=== PATIENT | male | born 1940 | race Caucasian/White ===

== ENCOUNTER 2016-08-17 21:02 | Inpatient (IN) | payer OTHER, SELFPAY ==
--- NOTE | ~2016-08-17 | HP ---
Unit #: [id number] #: [id number] Patient: GABRIEL BAH [id number] [address] [place], [place] [address] [id number] Jason MR#: [id number] NAME: GABRIEL BAH. ROOM: 466 Age: 76 Sex: M Admission Date: 08/17/2016 : 1940 Attending Physician: Ru Srinviasan M.D. Primary Care Physician: Rosy Martel M.D. HISTORY AND PHYSICAL HISTORY OF PRESENT ILLNESS Mr. Bah is a 76-year-old male followed by me for COPD, who presents with increasing shortness of air for about seven to eight days. He does have a cough which was productive of some yellow sputum initially, but now it is more like white or clear. He really did not complain of any fever or chills. He has had some chest tightness but not really chest pain. I gave her samples of Breo and also Anoro from the office and told him to try it one at a time and he felt like the Breo seemed to help more. However, I think he just finished the Breo. He has had some allergy issues. PAST MEDICAL HISTORY 1. Coronary artery disease. He had a coronary artery stent placed I believe in 2011. 2. Hypertension. 3. Hyperlipidemia. 4. Chronic back pain. 5. History of a penile malignancy. PAST SURGICAL HISTORY 1. Cardiac catheterization and stent placement. 2. Circumcision. MEDICATIONS ON ADMISSION 1. Lisinopril 10 mg p.o. daily. 2. Lipitor 20 mg p.o. daily. 3. Aspirin 81 mg p.o. daily, although I think he takes 2 daily. 4. DuoNebs q.6 p.r.n. 5. Anoro 1 puff daily, but he is not taking that. 6. Breo 1 puff daily. He is finishing that, but he probably will continue it. 7. He had taken prednisone on a tapering dose. 8. Nitroglycerin 0.4 mg sublingual p.r.n. 9. Lortab 10/325 q.8 p.r.n. ALLERGIES No known drug allergies. SOCIAL HISTORY He did smoke but quit about six years ago. FAMILY HISTORY Mom with breast cancer and father with heart disease. Unit #: [id number] #: [id number] Patient: GABRIEL BAH REVIEW OF SYSTEMS He has no leg swelling, no skin complaints, and no nausea or vomiting. Appetite is fair. All other systems are negative except as mentioned. PHYSICAL EXAMINATION GENERAL: He presents as an older male in no acute distress. VITAL SIGNS: Temperature was 97.2, pulse 76, respirations 16, blood pressure 134/71, and saturation 98% right now on 2 liters, but saturation was 86% on room air in the ER. NECK: Without adenopathy. LUNGS: Breathing was not labored. He had a little bit of inspiratory and expiratory rhonchi left posteriorly, but I could not really reproduce it when I listened again. He does have decreased breath sounds bilaterally. HEART: Regular. ABDOMEN: Soft and nontender. Bowel sounds are present. EXTREMITIES: Without edema. NEUROLOGICALLY: He is awake and alert. DIAGNOSTIC STUDIES LABORATORY: Blood gas on 2 liters revealed a pH of 7.36, PCO2 of 44, and PO2 of 85. Serum chemistry significant for BUN of 25, creatinine 0.8, total bilirubin 2.7, and indirect was 2.3. White blood cell count was 30.7, hemoglobin and hematocrit 17.8 and 52, and platelets 219,000. Back in March 2016, his white count was 15,000. IMAGING: Chest x-ray to my exam reveals no definite infiltrates, although I thought he had increased interstitial markings at the bases, and it was a portable, and it probably was not the best x-ray. IMPRESSION 1. Acute exacerbation of chronic obstructive pulmonary disease. 2. Coronary artery disease. 3. Leukocytosis actually etiology uncertain. He was indeed on prednisone before he came in, and that could have something to do with it, but it should not make it all the way to 30. 4. Elevated bilirubin slightly but etiology uncertain. 5. Acute hypoxemic respiratory failure. PLAN We will treat him with IV steroids and IV antibiotics, and I will give him Rocephin and try to send sputum for culture. Will check a procalcitonin. We will need to keep in mind that he has coronary artery disease, and I will check some enzymes even though this does not necessarily sound like a coronary syndrome to me. Dictated by Ru Srinivasan M.D. ROSI/nika TD: 08/18/2016 15:54 JOB #: [id number] Unit #: [id number] #: [id number] Patient: GABRIEL BAH HISTORY AND PHYSICAL Page 1 of 1 X Ru Srinivasan MD HISTORY AND PHYSICAL
--- NOTE | ~2016-08-17 | EKG ---
PATIENT: GABRIEL CELESTIN UNIT #: [id number] Ventricular Rate: 57 BPM Atrial Rate: 57 BPM P-R Interval: 126 ms QRS Duration: 68 ms Q-T Interval: 424 ms QTC Calculation(Bezet): 412 ms P [place]: 72 degrees Calculated R [place]: 59 degrees Calculated T [place]: 76 degrees Diagnosis Line: Sinus bradycardia Diagnosis Line: Nonspecific ST elevation Diagnosis Line: Otherwise normal ECG Diagnosis Line: When compared with ECG of 22-AUG-2016 23:09, Diagnosis Line: Premature supraventricular complexes are no longer Diagnosis Line: Present Diagnosis Line: Confirmed by KHANH FAGAN MD ([id number]) on 08/26/2016 Diagnosis Line: 5:39:21 AM INTERPRETING MD: GRACIA HIGH
--- NOTE | ~2016-08-17 | CR72 ---
[facility] [place]. [facility] A Service of [facility] & [facility] / [facility] RADIOLOGY TEXT RESULTS PATIENT: GABRIEL CELESTIN LOCATION: [place] [address] : [birth year] UNIT #: [id number] AGE: [address]: Ru Srinivasan MD SEX: M ORDER DR: [id number] [place] [id number] I MR#: [id number] Acc #: [id number] NAME: GABREIL CELESTIN. : 1940 SEX: M STUDY DATE/TIME: 08/17/2016 22:09 UNIT: SEDOF ROOM: [facility] STUDY DESCRIPTION: CR Chest Single View Portable Attending Physician: Ru Srinivasan M.D. Ordering Physician: Eleno Rivas M.D. Primary Care Physician: Rosy Martel M.D. MEDICAL IMAGING REPORT This report is preliminary unless electronic signature is present. EXAM Portable chest 08/17/2016 HISTORY Shortness of breath and cough for 1 week, COPD exacerbation. FINDINGS The heart is normal in size. The lungs are hyperinflated with emphysematous and fibrotic changes characteristic of COPD. No airspace consolidation is seen. There are no pleural effusions. IMPRESSION COPD. No active pulmonary disease. Dictated by... Onur Gonzalez M.D. THIS IS AN ELECTRONICALLY VERIFIED REPORT Onur Gonzalez M.D. at 08/18/2016 3:18 PM RYAN/alexus TD: 08/18/2016 01:05 JOB #: [id number] MEDICAL IMAGING REPORT Page 1 of 1
--- NOTE | ~2016-08-17 | CO ---
Unit #: [id number] #: [id number] Patient: GABRIEL CELESTIN [id number] [address] [place], [place] [address] [id number] I MR#: [id number] NAME: GABRIEL CELESTIN. ROOM: [facility] Age: 76 Sex: M Admission Date: 08/18/2016 : 1940 Attending Physician: Ru Srinivasan M.D. Primary Care Physician: Rosy Martel M.D. CONSULTATION REPORT REASON FOR CONSULTATION Chest pain. HISTORY OF PRESENT ILLNESS This is a 76-year-old white male, who has seen Dr. Johnson in the past had a stent placed in the proximal to mid LAD along with angioplasty on the first diagonal of the LAD back in 2011, his EF was 60% at that time. He has hypertension, hyperlipidemia, COPD. He is being treated by Dr. Srinivasan for exacerbation of COPD. While he has been here being under treatment, he had 2 episodes of right upper quadrant pain in midepigastric area after eating his meals and onetime he was eating a cheeseburger. He denies that the pain radiated up into his midsternal chest or in the substernal chest wall. Note, denied shoulder, jaw, neck, or arm pain. He denies any dizziness or palpitations and has had no reports of any edema. When he has the spell, he said he took some Maalox and within an hour, the symptoms have resolved. He said this does not feel like the pain that he has had in the past when he had his stents. Cardiology has been here. Since the patient has a history of CAD and previous stents and he is complaining of some discomfort that could indicate possibly angina, Cardiology has been consulted to assist with evaluation and management. PAST MEDICAL HISTORY 1. COPD. 2. Coronary artery disease. 07/2011, had a PCI and stent to the proximal and mid LAD, and first diagonal of the LAD had balloon angioplasty only. 3. LVEF of 60% per catheterization. 4. Hypertension. 5. Hyperlipidemia. 6. Chronic back pain. 7. In 2011, 2D echo, LVEF of 55%, calcified mitral apparatus, AV leaflets sclerotic, but no stenosis. 8. Chronic back pain. 9. Reformed smoker. PAST SURGICAL HISTORY Status post PCI and stent placed to the mid LAD in 07/2011 along with balloon angioplasty to the first diagonal of the LAD. HOME MEDICATIONS Lisinopril 10 mg 1 tablet p.o. daily, Lipitor 20 mg p.o. daily, aspirin 162 mg daily, albuterol and ipratropium inhalation every 6 hours p.r.n., Anoro Ellipta 62.5/25 mcg one inhalation daily, prednisone 10 mg tapering dose, Breo one inhalation daily, Nitrostat 0.4 mg sublingual p.r.n. for Unit #: [id number] #: [id number] Patient: GABRIEL CELESTIN chest pain, Lortab 10/325 one tablet p.o. every 8 hours p.r.n. ALLERGIES No known drug allergies. SOCIAL HISTORY The patient lives with his family. He quit smoking about 6 to 7 years ago. He was 1 to 2 pack a day smoker prior to that. No alcohol or illicit drug abuse. FAMILY HISTORY His mother had breast cancer. His father had coronary artery disease. REVIEW OF SYSTEMS See details in HPI. PHYSICAL EXAMINATION GENERAL: Mr. Celestin is a 76-year-old white male, in no acute respiratory distress. VITAL SIGNS: Blood pressure is 131/70, heart rate 64, respirations 18, temperature 97.4, O2 saturations 97% on 2 L. NECK: Trachea midline. No thyromegaly or lymphadenopathy. Normal carotid upstrokes. No jugular venous distention. HEART: S1, S2. Regular rate and rhythm. Soft systolic murmur over left sternal border. LUNGS: Very diminished with faint wheezes that clears with cough. ABDOMEN: Soft, nontender. Positive bowel sounds present. EXTREMITIES: Pedal pulses are palpable. No pedal edema. DIAGNOSTIC STUDIES LABORATORY RESULTS: Glucose is 92, BUN 26, creatinine 0.6, eGFR is 99.1, sodium 140, potassium 4.8, chloride 102, CO2 of 34, calcium is 8.2, total protein 6.1, albumin 3.2, bilirubin total 1.0, AST 16, ALT 18, alkaline phosphatase 58. Fasting lipid profile; cholesterol is 143, triglycerides 243, LDL is 43, HDL 51. WBC is 20, hemoglobin 14.3, hematocrit 45.3, and platelets 128. Initial cardiac enzymes; CK-MB is 1.1 with troponin less than 0.05. Latest cardiac enzymes troponin less than 0.03. Sputum culture is showing Acinetobacter baumannii/haemolyticus. IMAGING STUDIES: Chest x-ray extensive calcification along with thoracic spine, heart, and mediastinum normal. Lungs hyperinflated suggesting underlying chronic airway disease. No evidence of any acute infection or inflammatory disease, perfusion, or pneumothorax. CARDIOVASCULAR STUDIES: EKG shows sinus bradycardia, heart rate of 57 beats per minute, early repolarization, nondiagnostic Q-waves in inferior leads, poor R-wave progression. IMPRESSION 1. Exacerbation of chronic obstructive pulmonary disease, acute on chronic hypoxic respiratory failure. 2. Hypertension. 3. Atypical chest pain. 4. History of coronary artery disease, status post percutaneous coronary intervention and stent to the left anterior descending back in 2012. 5. Left ventricular ejection fraction is 60% in 2012 per echo. 6. Hyperlipidemia. 7. Chronic back pain. Unit #: [id number] #: [id number] Patient: GABRIEL CELESTIN PLAN 1. Cardiology consulted to evaluate the patient's complaints of chest pain. After interview and exam, it appears that his pain is more epigastric and more GI in nature. We did recheck his EKG and does not show anything acute. We will evaluate for possible GERD or gallbladder disease. He has been scheduled for an outpatient testing for his gallbladder disease. 2. The patient has not been following up with Dr. Johnson for couple years, but when he is discharged to our office, we will call the patient and schedule him appointment. He will need some type of ischemic heart disease workup since 2011 possibly just a stress test and also 2D echo. His cardiac enzymes have been negative and note his fasting lipid profile. He is on Lipitor. 3. On exam, there are no signs or symptoms of acute congestive heart failure. 4. Management of his exacerbation of COPD per Dr. Srinivasan. 5. Continue the patient on his lisinopril, his Lipitor, his aspirin. He is not on a beta-bria due to bradycardia. Thank you very much for allowing us to assist in his care. Further recommendations pending per Dr. Johnson. Dictated by... Mercy Moreno A.P.R.N. for Rogers Castellanos/stephen TD: 08/25/2016 07:41 JOB #: [id number] CONSULTATION REPORT Page 1 of 1 X Mercy Moreno APRN CONSULTATION REPORT
--- NOTE | ~2016-08-17 | EKG ---
PATIENT: GABRIEL CELESTIN UNIT #: [id number] Ventricular Rate: 61 BPM Atrial Rate: 61 BPM P-R Interval: 140 ms QRS Duration: 62 ms Q-T Interval: 440 ms QTC Calculation(Bezet): 442 ms P [place]: 59 degrees Calculated R [place]: 70 degrees Calculated T [place]: 87 degrees Diagnosis Line: Normal sinus rhythm Diagnosis Line: ST elevation consider inferior injury or acute Diagnosis Line: infarct Diagnosis Line: * ACUTE NM Diagnosis Line: Consider right ventricular involvement in acute Diagnosis Line: inferior infarct Diagnosis Line: Abnormal ECG Diagnosis Line: When compared with ECG of 24-MAR-2016 06:36, Diagnosis Line: Vent. rate has decreased BY 37 BPM Diagnosis Line: Questionable change in QRS duration Diagnosis Line: Confirmed by JOLIE HIGHTOWER MD ([id number]) on 08/21/2016 Diagnosis Line: 9:44:04 AM INTERPRETING MD: KATJA HIGH
--- NOTE | ~2016-08-17 | EKG ---
PATIENT: GABRIEL CELESTIN UNIT #: [id number] Ventricular Rate: 55 BPM Atrial Rate: 55 BPM P-R Interval: 138 ms QRS Duration: 68 ms Q-T Interval: 460 ms QTC Calculation(Bezet): 440 ms P [place]: 83 degrees Calculated R [place]: 71 degrees Calculated T [place]: 87 degrees Diagnosis Line: Sinus bradycardia Diagnosis Line: Otherwise normal ECG Diagnosis Line: When compared with ECG of 19-AUG-2016 05:59, Diagnosis Line: (unconfirmed) Diagnosis Line: No significant change was found Diagnosis Line: Confirmed by JOLIE HIGHTOWER MD ([id number]) on 08/21/2016 Diagnosis Line: 9:44:20 AM INTERPRETING MD: KATJA HIGH
--- NOTE | ~2016-08-17 | DS ---
Unit #: [id number] #: [id number] Patient: GABRIEL CELESTIN [id number] [place] [id number] [facility]. [place], [place] [address] [id number] I MR#: [id number] NAME: GABRIEL CELESTIN. ROOM: [facility] Age: 76 Sex: M Admission Date: 08/18/2016 : 1940 Discharge Date: 08/24/2016 Attending Physician: Ru Srinivasan M.D. Primary Care Physician: Rosy Martel M.D. DISCHARGE SUMMARY FINAL DIAGNOSES 1. Acute exacerbation of chronic obstructive pulmonary disease. 2. Acute hypoxemic respiratory failure. 3. Acute Acinetobacter bronchitis. 4. Atypical chest pain. 5. Leukocytosis. CONSULTANTS Dr. Johnson. PROCEDURES None. HISTORY OF PRESENT ILLNESS AND HOSPITAL COURSE Mr. Celestin is a 76-year-old male followed by me in the office, who presented with an increasing shortness of air. We sent off sputum for culture and started him on Rocephin but then that was changed to cefepime. His sputum grew out Gram-negative rods which is why it was changed to cefepime. The sputum did eventually grow out Acinetobacter which is sensitive to Levaquin. He will be therefore be changed to Levaquin. However, clinically he has improved considerably. He is doing better with decreased shortness of air. Although he had originally been started on Solu-Medrol, that was tapered down and now he is on prednisone. We did check a procalcitonin but it was less than 0.05. He does have coronary artery disease and did complain of some chest versus epigastric pain. We have checked multiple EKGs while he was here and I checked enzymes when he first came here and that was all low. However, under the circumstances, I felt that he needed to be seen by Cardiology. He has already been seen by Dr. Johnson's nurse and Dr. Johnson is here. If he agrees, Mr. Celestin will be discharged. We will recheck oxygenation before he leaves although we were originally going to set up home oxygen but that was based on numbers from a few days ago. DISCHARGE MEDICATIONS He will be sent home on the following medicines: 1. DuoNeb q.i.d. p.r.n. 2. Breo 200 one puff daily, 3. Prednisone 30 mg p.o. daily decreasing by 10 mg every three days. 4. Levaquin 750 mg p.o. daily for seven days. 5. Atorvastatin 20 mg p.o. daily. 6. Lisinopril 10 mg p.o. daily. 7. Aspirin 81 mg p.o. daily. 8. Lortab which is a home medicine and I did not write it. Unit #: [id number] #: [id number] Patient: GABRIEL CELESTIN DIET Diet will be healthy heart. ACTIVITY Activity will be as tolerated. FOLLOWUP 1. He should follow up with us in a few weeks. 2. He is to follow up with Dr. Johnson as arranged. NOTE Again, we will check oxygenation before he leaves. Dictated by... Rogers Handy/kashmir TD: 08/26/2016 15:33 JOB #: [id number] DISCHARGE SUMMARY Page 1 of 1 X Ru Srinivasan MD X DISCHARGE SUMMARY
--- NOTE | ~2016-08-17 | CR63 ---
[facility] A Service of [facility] & [facility] RADIOLOGY TEXT RESULTS PATIENT: GABRIEL CELESTIN LOCATION: [facility] [id number] : 42 UNIT #: [id number] AGE: [address]: Ru Srinivasan MD SEX: M ORDER DR: [id number] [facility] [address] [place], [place] [address] [id number] I MR#: [id number] Acc #: [id number] NAME: GABRIEL CELESTIN. : 1940 SEX: M STUDY DATE/TIME: 08/22/2016 16:00 UNIT: [facility] ROOM: [facility] STUDY DESCRIPTION: CR Chest 2 View Attending Physician: Ru Srinivasan M.D. Ordering Physician: Ru Srinivasan M.D. Primary Care Physician: Rosy Martel M.D. MEDICAL IMAGING REPORT This report is preliminary unless electronic signature is present EXAM 2 views chest, 08/22/2016 HISTORY Bradycardia versus pneumonia. FINDINGS PA and lateral radiographs of the chest are presented. Comparison 08/13/2015 and 08/18/2015. Extensive calcification along the thoracic spine anterior longitudinal ligament. No acute-appearing bony abnormality. Heart and mediastinum normal in size and contour. Lungs hyperinflated suggesting underlying chronic airway disease. Relative lucency in the upper lung zones suggests underlying emphysema. Correlate with risk factors. No evidence of acute infectious or inflammatory disease, pleural effusion or pneumothorax. There is no suspicious nodule. Probable eventration of the lateral right hemidiaphragm. No suspicious nodule. Dictated by... Eleno Hernandez M.D. THIS IS AN ELECTRONICALLY VERIFIED REPORT Eleno Hernandez M.D. at 08/23/2016 11:32 PM JULIEN/mary TD: 08/22/2016 23:54 JOB #: [id number] MEDICAL IMAGING REPORT Page 1 of 1 COPY
--- NOTE | ~2016-08-17 | EKG ---
PATIENT: GABRIEL CELESTIN UNIT #: [id number] Ventricular Rate: 105 BPM Atrial Rate: 105 BPM P-R Interval: 130 ms QRS Duration: 68 ms Q-T Interval: 338 ms QTC Calculation(Bezet): 446 ms P [place]: 62 degrees Calculated R [place]: 103 degrees Calculated T [place]: 79 degrees Diagnosis Line: Sinus tachycardia with Premature ventricular Diagnosis Line: complexes or Fusion complexes Diagnosis Line: Right ventricular hypertrophy Diagnosis Line: Nonspecific ST abnormality Diagnosis Line: Abnormal ECG Diagnosis Line: When compared with ECG of 24-MAR-2016 06:36, Diagnosis Line: Fusion complexes are now Present Diagnosis Line: Premature ventricular complexes are now Present Diagnosis Line: ST elevation now present in Inferior leads Diagnosis Line: Confirmed by JOLIE HIGHTOWER MD ([id number]) on 08/21/2016 Diagnosis Line: 9:33:50 AM INTERPRETING MD: KATJA HIGH
--- NOTE | ~2016-08-17 | EKG ---
PATIENT: GABRIEL CELESTIN UNIT #: [id number] Ventricular Rate: 76 BPM Atrial Rate: 76 BPM P-R Interval: 98 ms QRS Duration: 72 ms Q-T Interval: 402 ms QTC Calculation(Bezet): 452 ms P [place]: 68 degrees Calculated R [place]: 66 degrees Calculated T [place]: 75 degrees Diagnosis Line: Sinus rhythm with short CO with Premature Diagnosis Line: supraventricular complexes Diagnosis Line: Otherwise normal ECG Baseline wander Diagnosis Line: When compared with ECG of 19-AUG-2016 06:22, Diagnosis Line: Premature supraventricular complexes are now Diagnosis Line: Present Diagnosis Line: CO interval has decreased Diagnosis Line: Nonspecific T wave abnormality no longer evident Diagnosis Line: in Lateral leads Diagnosis Line: Confirmed by JOLIE HIGHTOWER MD ([id number]) on 08/23/2016 Diagnosis Line: 8:08:17 PM INTERPRETING MD: KATJA HIGH
[~2016-08-17 21:02] MED LIST: ALB/IPRATROPIUM/1 E1 INH; ALBUTEROL 0.5ML INH; ANORO ELLIPTA1 EACH INH; ASPIRIN81 M1 PO; ASPIRIN81 MG PO; BAYER ASPIRIN325 M1 PO; BAYER CHEWABLE81 MG PO; BUDESONIDE0.25 MG/2 IH; CLOPIDOGREL75 MG PO; DALIRESP500 MCG PO; DUONEB 2.5-0.5 M3 ML INH; EFFIENT10 MG PO; LEVAQUIN PO; LIPITOR20 MG PO; LISINOPRIL10 MG PO; LOPRESSOR PO; NITROSTAT0.4 MG SL; PREDNISONE PO; PREDNISONE10 MG PO; PREVACID PO; PROTONIX PO; PULMICORT200 MCG/AE; TAMIFLU75 M1 PO; ULTRAM PO
[2016-08-17 21:32] LABS: BASOPHIL% 0.1 % (0-2.5); HEMATOCRIT 52.8 % (38.0-50.0); HEMOGLOBIN 17.8 gm/dL (13.0-16.0); LYMPHOCYTE# 1.2 X10e3 (1.0-3.5); MEAN CELL VOLUME 85.8 FL (83-96); MEAN CORPUSCULAR HEMOGLOBIN 28.9 PG (28-34); MEAN CORPUSCULAR HGB CONC 33.7 g/dL (30-36); MEAN PLATELET VOLUME 9.1 FL (6.5-11.5); MONOCYTE# 1.7 X10e3 (0-1.0); MONOCYTE% 5.6 % (3.0-12.0); NEUTROPHIL# 27.7 X10e3 (1.5-7.1); NEUTROPHIL% 90.3 % (40-75); PLATELET COUNT 219 X10e3 (140-420); RED BLOOD COUNT 6.16 X10e (3.90-5.60); RED CELL DISTRIBUTION WIDTH 13.1 % (11.0-15.5); WHITE BLOOD COUNT 30.7 X10e3 (4.0-10.5)
[2016-08-17 21:35] LABS: DIFF IND YES; INR 1.1
[2016-08-17 21:43] LABS: ALBUMIN SERUM 3.7 g/dL (3.5-5.0); BILIRUBIN, DIRECT 0.4 mg/dL (0.0-0.2); BILIRUBIN,INDIRECT 2.3 mg/dL (0.0-0.9); BILIRUBIN,TOTAL 2.7 mg/dL (0.2-2.0); BUN/CREATININE RATIO 31.25; CALCIUM SERUM 8.6 mg/dL (8.4-10.2); CREATININE SERUM 0.8 mg/dL (0.6-1.4); POTASSIUM 3.9 mmol/L (3.5-5.1); PROTEIN TOTAL SERUM 6.9 g/dL (6.0-8.3)
[2016-08-17 21:48] LABS: ANISOCYTOSIS SL; PLATELET ESTIMATE NORMAL (NORMAL)
[2016-08-17 21:55] LABS: POC - CKMB 1.1 ng/mL (0.0-7.9); POC - TROPONIN <0.05 ng/mL (<=0.05)
[2016-08-17 23:10] LABS: ARTERIAL BLD GAS O2 SATURATION 95.6 % (90.0-100.0); ARTERIAL BLOOD GAS CARBOXY HB 2.3 %sat (0.0-9.0); ARTERIAL BLOOD GAS HCO3 24.4 mmol/L
[2016-08-17 23:11] LABS: ARTERIAL BLOOD GAS ALLEN TEST NORMAL; ARTERIAL DRAW? YES
[2016-08-17 23:12] LABS: ARTERIAL BLOOD GAS ART SITE RIGHT RADIAL; ARTERIAL BLOOD GAS DELIVERY NASAL CANNULA
[2016-08-18] MEDS ORDERED: BREO ELLIPTA I1 EACH INH (02:07)
[2016-08-18] MEDS ORDERED: NITROGLYCERIN0.4 MG SL (02:08)
[2016-08-18] MEDS ORDERED: LORTAB 10-3251 EACH PO (02:09)
[2016-08-18 17:25] LABS: PROCALCITONIN 0.16 NG/ML
[2016-08-19 03:04] LABS: HEMATOCRIT 47.7 % (38.0-50.0); HEMOGLOBIN 15.3 gm/dL (13.0-16.0); MEAN CELL VOLUME 87.8 FL (83-96); MEAN CORPUSCULAR HEMOGLOBIN 28.2 PG (28-34); MEAN CORPUSCULAR HGB CONC 32.1 g/dL (30-36); MEAN PLATELET VOLUME 8.9 FL (6.5-11.5); RED BLOOD COUNT 5.43 X10e (3.90-5.60); RED CELL DISTRIBUTION WIDTH 13.3 % (11.0-15.5); WHITE BLOOD COUNT 28.2 X10e3 (4.0-10.5)
[2016-08-19 03:23] LABS: ALBUMIN SERUM 3.2 g/dL (3.5-5.0); CALCIUM SERUM 8.4 mg/dL (8.4-10.2); GLOM FILT RATE Estimated 73.8 mL/min (>60); POTASSIUM 4.1 mmol/L (3.5-5.1); PROTEIN TOTAL SERUM 6.1 g/dL (6.0-8.3)
[2016-08-20 03:45] LABS: HEMATOCRIT 48.5 % (38.0-50.0); HEMOGLOBIN 15.4 gm/dL (13.0-16.0); LYMPHOCYTE# 0.9 X10e3 (1.0-3.5); LYMPHOCYTE% 3.5 % (17.0-45.0); MEAN CELL VOLUME 89.9 FL (83-96); MEAN CORPUSCULAR HEMOGLOBIN 28.5 PG (28-34); MEAN CORPUSCULAR HGB CONC 31.7 g/dL (30-36); MEAN PLATELET VOLUME 9.3 FL (6.5-11.5); MONOCYTE# 0.5 X10e3 (0-1.0); NEUTROPHIL% 94.5 % (40-75); PLATELET COUNT 210 X10e3 (140-420); RED BLOOD COUNT 5.39 X10e (3.90-5.60); RED CELL DISTRIBUTION WIDTH 13.7 % (11.0-15.5); WHITE BLOOD COUNT 24.3 X10e3 (4.0-10.5)
[2016-08-20 03:46] LABS: DIFF IND NO
[2016-08-21 10:04] LABS: BUN/CREATININE RATIO 52.85; CALCIUM SERUM 8.2 mg/dL (8.4-10.2); CREATININE SERUM 0.7 mg/dL (0.6-1.4); POTASSIUM 4.9 mmol/L (3.5-5.1)
[2016-08-22 09:08] LABS: BASOPHIL% 0.2 % (0-2.5); DIFF IND YES; HEMATOCRIT 46.5 % (38.0-50.0); HEMOGLOBIN 14.8 gm/dL (13.0-16.0); LYMPHOCYTE# 0.8 X10e3 (1.0-3.5); LYMPHOCYTE% 4.3 % (17.0-45.0); MEAN CELL VOLUME 89.3 FL (83-96); MEAN CORPUSCULAR HEMOGLOBIN 28.5 PG (28-34); MEAN CORPUSCULAR HGB CONC 31.9 g/dL (30-36); MEAN PLATELET VOLUME 9.1 FL (6.5-11.5); MONOCYTE# 0.6 X10e3 (0-1.0); MONOCYTE% 3.2 % (3.0-12.0); NEUTROPHIL# 16.6 X10e3 (1.5-7.1); NEUTROPHIL% 92.3 % (40-75); PLATELET COUNT 150 X10e3 (140-420); RED CELL DISTRIBUTION WIDTH 13.3 % (11.0-15.5)
[2016-08-22 11:04] LABS: ANISOCYTOSIS SL; PLATELET ESTIMATE NORMAL (NORMAL); RBC NORMAL YES
[2016-08-22 23:45] LABS: CK TOTAL 27 IU/L (36-174)
[2016-08-24 06:35] LABS: BASOPHIL% 0.2 % (0-2.5); DIFF IND NO; HEMATOCRIT 45.3 % (38.0-50.0); HEMOGLOBIN 14.3 gm/dL (13.0-16.0); LYMPHOCYTE# 1.1 X10e3 (1.0-3.5); LYMPHOCYTE% 5.5 % (17.0-45.0); MEAN CELL VOLUME 89.1 FL (83-96); MEAN CORPUSCULAR HEMOGLOBIN 28.1 PG (28-34); MEAN CORPUSCULAR HGB CONC 31.5 g/dL (30-36); MEAN PLATELET VOLUME 9.4 FL (6.5-11.5); MONOCYTE# 0.8 X10e3 (0-1.0); MONOCYTE% 4.2 % (3.0-12.0); NEUTROPHIL% 90.1 % (40-75); PLATELET COUNT 128 X10e3 (140-420); RED BLOOD COUNT 5.08 X10e (3.90-5.60); RED CELL DISTRIBUTION WIDTH 13.2 % (11.0-15.5)
[2016-08-24 07:00] LABS: CALCIUM SERUM 8.1 mg/dL (8.4-10.2); CREATININE SERUM 0.7 mg/dL (0.6-1.4); POTASSIUM 5.4 mmol/L (3.5-5.1)
[2016-08-24 13:23] LABS: BUN/CREATININE RATIO 43.33; CALCIUM SERUM 8.2 mg/dL (8.4-10.2); CREATININE SERUM 0.6 mg/dL (0.6-1.4); GLOM FILT RATE Estimated 99.1 mL/min (>60); POTASSIUM 4.8 mmol/L (3.5-5.1)
[2016-08-24 14:25] LABS: CHOLESTEROL 143 mg/dL (0-200); HDL CHOLESTEROL 51 mg/dL (29-75); LDL CHOLESTEROL 43 mg/dL (-130); LDL/HDL RATIO 1 RATIO (0-4); TRIGLYCERIDES 243 mg/dL (10-160)
[2016-08-24] MEDS ORDERED: ALMACONE CHEWA1 EACH PO (17:53)
[2016-08-24] MEDS ORDERED: BREO ELLIPTA 21 EACH INH (17:56)
[2016-08-24] MEDS ORDERED: PREDNISONE10 MG PO (17:56)
[2016-08-24] MEDS ORDERED: LEVAQUIN750 MG PO (17:57)
== END 2016-08-24 19:12 | disposition home or self-care (01) | DRG 189 ==
LOC: SED 21:02 → C4C 23:37 → SEDOF 23:37 → C4C 08-18 01:50
PROVIDERS: Emergency Medicine; Internal Medicine Pulmonary Disease; Nurse Practitioner
DX: J96.21 Acute and chronic respiratory failure with hypoxia (principal); J44.0 Chronic obstructive pulmonary disease with (acute) lower respiratory infection; J44.1 Chronic obstructive pulmonary disease with (acute) exacerbation; I10 Essential (primary) hypertension; I25.10 Atherosclerotic heart disease of native coronary artery without angina pectoris; D72.829 Elevated white blood cell count, unspecified; E78.5 Hyperlipidemia, unspecified; G89.29 Other chronic pain; M54.9 Dorsalgia, unspecified; Z95.5 Presence of coronary angioplasty implant and graft; Z87.891 Personal history of nicotine dependence; Z79.82 Long term (current) use of aspirin; R07.89 Other chest pain; J20.8 Acute bronchitis due to other specified organisms
CPT/HCPCS: 36415; 36600; 71010; 71020; 80048; 80053; 80061; 80076; 82308; 82550; 82553; 82803; 83605; 84484; 85025; 85027; 85610; 85730; 87040; 87070; 87077; 87186; 87205; 93005; 94640; 94760; 94761; 96365; 96375; 99285; J0692; J0696; J1650; J2920; J2930; J3475

== ENCOUNTER 2016-10-09 12:06 | Inpatient (IN) | payer OTHER ==
--- NOTE | ~2016-10-09 | DS ---
Unit #: [id number] #: [id number] Patient: GABRIEL CELESTIN [id number] [address] [place], [place] [address] [id number] I MR#: [id number] NAME: GABRIEL CELESTIN. ROOM: 301 Age: 76 Sex: M Admission Date: 10/09/2016 : 1940 Discharge Date: 10/13/2016 Attending Physician: Brady Lantigua M.D. Primary Care Physician: Rosy Martel M.D. DISCHARGE SUMMARY FINAL DIAGNOSES 1. Pneumonia, presumed healthcare associated. 2. Acute on chronic hypercapnic and hypoxemic respiratory failure. 3. Acute exacerbation of chronic obstructive pulmonary disease. 4. Emphysema. MAGISTRATE None. HISTORY OF PRESENT ILLNESS Mr. Celestin is a 76-year-old male with history of known emphysema and previous pneumonia, presented with increasing shortness of air, increased cough. In the ER, he actually had a blood gas on 4 L nasal cannula, pH 7.31, pCO2 of 63, pO2 of 193. He had a chest x-ray with bilateral lower lobe infiltrates, thought consistent with bilateral pneumonia. His original white blood cell count was 15,000, repeat 13,000. Sputum was sent for culture and revealed only respiratory julia and blood was sent for culture and was negative. He was originally started on Zosyn and vancomycin, and I briefly switched it to cefepime and then I went back to Zosyn just because in August he had a sputum that showed acinetobacter. At that time, it was sensitive to ampicillin/sulbactam. I therefore eventually switched to Unasyn; however, we did not grow that this time. Therefore, I am assuming that was not a pathogen at this time. He had a little bit of expiratory wheezes that just did not seem to go away, so I started him on a little bit of IV steroid and I continued it for a few days. In the end, some of this was probably exacerbation of COPD. Previous CAT scan done in March did reveal significant emphysema and so that is a part of this. As of October 13, 2016, he is doing better and ready for discharge. I will check a pulse oximetry on room air before he goes. DISCHARGE MEDICATIONS He will continue on the following medicines: 1. DuoNeb q.i.d. and p.r.n. 2. Prednisone 40 mg p.o. daily, decreasing by 10 mg every three days. 3. Anoro one puff daily. 4. Lipitor 20 mg p.o. daily. 5. Aspirin 81 mg p.o. daily. 6. Lortab 10/325 two to three times daily which is a home med and I did not refill it myself. 7. Plavix 75 mg p.o. daily. 8. Doxycycline 100 mg p.o. b.i.d. 9. Nitrostat p.r.n. which is a home medicine and I did not refill that either. Unit #: [id number] #: [id number] Patient: SABIGABRIEL Wanda FOLLOWUP He is to follow with me in two to four weeks, and he should follow up with his primary medical doctor. We will base need for oxygen based on pulse oximetry to be done before he leaves. Dictated by... Rogers Handy/delmy TD: 10/15/2016 16:30 JOB #: [id number] DISCHARGE SUMMARY Page 1 of 1 X Ru Srinivasan MD X DISCHARGE SUMMARY
--- NOTE | ~2016-10-09 | EKG ---
PATIENT: GABRIEL CELESTIN UNIT #: [id number] Ventricular Rate: 96 BPM Atrial Rate: 96 BPM P-R Interval: 144 ms QRS Duration: 76 ms Q-T Interval: 356 ms QTC Calculation(Bezet): 449 ms P Pierron: 41 degrees Calculated R Pierron: 74 degrees Calculated T Pierron: 57 degrees Diagnosis Line: Normal sinus rhythm Premature atrial complexes Diagnosis Line: , plus right ventricular hypertrophy Diagnosis Line: When compared with ECG of 24-AUG-2016 12:29, Diagnosis Line: Vent. rate has increased BY 39 BPM Diagnosis Line: Confirmed by KHANH FAGAN MD ([id number]) on 10/10/2016 Diagnosis Line: 8:20:13 PM INTERPRETING MD: GRACIA HIGH
--- NOTE | ~2016-10-09 | CR72 ---
[facility] A Service of [facility] RADIOLOGY TEXT RESULTS PATIENT: GABRIEL CELESTIN LOCATION: [facility] : 42 UNIT #: [id number] AGE: [address]: Henok Lantigua MD SEX: M ORDER DR: [id number] [facility] [address]. [place], [place] [address] [id number] MR#: [id number] Acc #: [id number] NAME: GABRIEL CELESTIN. : 1940 SEX: M STUDY DATE/TIME: 10/09/2016 12:44 UNIT: JUNITO ROOM: STUDY DESCRIPTION: CR Chest Single View Portable Attending Physician: Yamilka Mcdonough M.D. Ordering Physician: Yamilka Mcdonough M.D. Primary Care Physician: Rosy Martel M.D. MEDICAL IMAGING REPORT This report is preliminary unless electronic signature is present EXAM Portable chest HISTORY Cough with shortness of breath for the past 6 days. TECHNIQUE Single AP view of the chest was obtained. COMPARISON 08/22/2016 FINDINGS The heart and mediastinum are stable. Diffuse bilateral interstitial infiltrates are noted most prominent at the bases. This is new since the previous examination and accompanied by mild prominence of the pulmonary vascularity. This probably represents diffuse interstitial edema. The possibility of an infectious or inflammatory pneumonitis should also be considered but felt to be less likely. No pleural fluid is seen. IMPRESSION Diffuse increase in interstitial markings since the previous examination accompanied by mild pulmonary vascular congestion. I favor diffuse interstitial edema rather than an inflammatory or infectious etiology. No accompanying pleural effusion seen. Dictated by... Stevie Ordonez M.D. THIS IS AN ELECTRONICALLY VERIFIED REPORT Stevie Ordonez M.D. at 10/09/2016 5:10 PM JESS/sena [facility] A Service of [facility] RADIOLOGY TEXT RESULTS PATIENT: GABRIEL CELESTIN LOCATION: [facility] : 42 UNIT #: [id number] AGE: [address]: Henok Lantigua MD SEX: M ORDER DR: TD: 10/09/2016 14:42 JOB #: [id number] MEDICAL IMAGING REPORT Page 1 of 1 COPY
--- NOTE | ~2016-10-09 | CR63 ---
[facility] A Service of [facility] RADIOLOGY TEXT RESULTS PATIENT: GABRIEL CELESTIN LOCATION: [facility] : 42 UNIT #: [id number] AGE: [address]: Henok Lantigua MD SEX: M ORDER DR: [id number] [facility] [address] [place], [place] [address] [id number] I MR#: [id number] Acc #: [id number] NAME: GABRIEL CELESTIN. : 1940 SEX: M STUDY DATE/TIME: 10/10/2016 8:53 UNIT: [address] ROOM: [facility] STUDY DESCRIPTION: CR Chest 2 View Attending Physician: Brady Lantigua M.D. Ordering Physician: Ru Srinivasan M.D. Primary Care Physician: Rosy Martel M.D. MEDICAL IMAGING REPORT This report is preliminary unless electronic signature is present EXAM PA and lateral chest DATE 10/10/2016 HISTORY Shortness breath for 1 week. History of coronary stent placement. COMPARISON AP portable chest 10/09/2016. FINDINGS The heart size is stable and within normal limits. Fine interstitial thickening in both lungs is demonstrated predominately within the lower lung zones, but appears improved in comparison to 10/09/2016, and appears more similar to the more remote 08/17/2016 examination. No dense lung consolidations are identified. No pleural effusion or pneumothorax. Right upper lobe appears hyperinflated and may be emphysematous. No acute osseous abnormalities. IMPRESSION 1. Significant interval improvement in interstitial infiltrates compared to the previous examination. No lung consolidations are seen. 2. Emphysema. Dictated by... Mary Drummond M.D. THIS IS AN ELECTRONICALLY VERIFIED REPORT Mary Drummond M.D. at 10/11/2016 9:36 PM [facility] A Service of [facility] & [facility] RADIOLOGY TEXT RESULTS PATIENT: GABRIEL CELESTIN LOCATION: [facility] : 42 UNIT #: [id number] AGE: [address]: Henok Lantigua MD SEX: M ORDER DR: RIC/kaley TD: 10/10/2016 16:10 JOB #: [id number] MEDICAL IMAGING REPORT Page 1 of 1 COPY
--- NOTE | ~2016-10-09 | CT57 ---
[facility] A Service of [facility] RADIOLOGY TEXT RESULTS PATIENT: GABRIEL CELESTIN LOCATION: [facility] 301- : 42 UNIT #: [id number] AGE: [address]: Henok Lantigua MD SEX: M ORDER DR: [id number] [facility] [address] [place], [place] [address] [id number] I MR#: [id number] Acc #: [id number] NAME: GABRIEL CELESTIN. : 1940 SEX: M STUDY DATE/TIME: 10/10/2016 18:31 [facility] ROOM: 301 STUDY DESCRIPTION: CT Chest Wo Cont Attending Physician: Brady Lantigua M.D. Ordering Physician: Brady Lantigua M.D. Primary Care Physician: Rosy Martel M.D. MEDICAL IMAGING REPORT This report is preliminary unless electronic signature is present EXAM CT chest without contrast, high-resolution protocol. INDICATIONS Shortness of air and cough for the past week. PROCEDURE Unenhanced CT chest utilizing high-resolution technique. This CT exam was performed with one or more of the following radiation dose reduction techniques: automatic exposure control, adjustment of mA and/or kV according to patient size, and iterative reconstruction. COMPARISON CTA chest, 03/24/2016. FINDINGS Severe emphysema. Scattered areas of linear opacity in both lungs, most in keeping with scarring. There is no evidence for honeycombing or abnormal ground-glass opacity. The somewhat nodular region in the right upper lobe measures 1.9 cm, and again, probably represents scar, but is new compared with the prior. Scattered areas of micronodularity in the inferior right upper lobe, right middle lobe, both lower lobes and lingula. No dense consolidation. There is mild to moderate diffuse bronchial wall thickening, mild bronchiectasis. Coronary artery calcification. No acute findings in the included upper abdomen. IMPRESSION 1. Severe emphysema. 2. Scattered areas of linear opacity, favored to represent scarring. A somewhat nodular region, right upper lobe, is new from the prior and again favored to represent scarring, but recommend attention on a STS. [facility] A Service of [facility] RADIOLOGY TEXT RESULTS PATIENT: GABRIEL CELESTIN LOCATION: [facility] 301-01 : 42 UNIT #: [id number] AGE: [address]: Henok Lantigua MD SEX: M ORDER DR: short-interval followup unenhanced chest CT to document stability in approximately 3-6 months. 3. Scattered micronodularity in both lungs is most in keeping with chronic infectious or inflammatory change. 4. There is no evidence for honeycombing. 5. Mild diffuse bronchial wall thickening suggesting bronchitis. Dictated by... Eduin Barreto M.D. THIS IS AN ELECTRONICALLY VERIFIED REPORT Eduin Barreto M.D. at 10/16/2016 3:07 PM Aminata TD: 10/11/2016 12:24 JOB #: [id number] MEDICAL IMAGING REPORT Page 1 of 1 COPY
--- NOTE | ~2016-10-09 | HP ---
Unit #: [id number] #: [id number] Patient: GABRIEL CELESTIN [id number] [address] [place], [place] [address] [id number] I MR#: [id number] NAME: GABRIEL CELESTIN. ROOM: 301 Age: 76 Sex: M Admission Date: 10/09/2016 : 1940 Attending Physician: Brady Lantigua M.D. Primary Care Physician: Rosy Martel M.D. HISTORY AND PHYSICAL HISTORY OF PRESENT ILLNESS Mr. Celestin is a 76-year-old male known by me with previous history of pneumonia and a history of COPD who presented with increasing cough with green sputum. He felt like he had a "cold" about five days ago. He started to have a fever and shaking chills. He works and he took the day off on Friday which is three days ago but really did not feel a whole lot better. He continued to worsen and came to the emergency room today. He complained of increased shortness of air. He denied chest pain. He does have a history of coronary artery disease but did not complain of chest pain. He denies choking on food. He did smoke but he quit in 2011. PAST MEDICAL HISTORY Significant for: 1. Coronary artery disease, status post stent, I believe somewhere around 2011. 2. Hypertension. 3. Hyperlipidemia. 4. Chronic back pain. 5. History of a penile malignancy. PAST SURGICAL HISTORY Include: 1. Cardiac catheterization and stent placement. 2. Circumcision. HOME MEDICATIONS Included: 1. Anoro one puff daily. 2. Aspirin 81 mg p.o. daily. 3. DuoNeb q.i.d. 4. Plavix 75 mg p.o. daily. 5. Lipitor 20 mg p.o. daily. 6. Nitrostat 0.4 mg p.r.n. 7. Lortab 10/325 b.i.d. to t.i.d. p.r.n. 8. Levaquin 500 mg p.o. daily. ALLERGIES No known drug allergies. SOCIAL HISTORY He did smoke and he quit in 2011. FAMILY HISTORY Unit #: [id number] #: [id number] Patient: GABRIEL CELESTIN Significant for father with heart disease and apparently his mother had breast cancer. REVIEW OF SYSTEMS He denies choking on food. He had nausea. No vomiting, no diarrhea. Appetite has been down. No leg swelling. He usually does not have any skin issues. He has had some cold-like symptoms with some sinus issues lately. All other systems are negative except as mentioned. PHYSICAL EXAMINATION VITAL SIGNS: Temperature 98.3, pulse 90, respirations 24, blood pressure 141/76, saturations are running around 94% I believe on 3 liters. GENERAL: He presents as an older male in no acute distress. NECK: Without adenopathy. LUNGS: Evaluation of his lungs reveals his breathing is not labored. He had a little bit of inspiratory rhonchi at the bases bilaterally and maybe a little bit of expiratory wheeze and mildly decreased breath sounds bilaterally. HEART: Regular. ABDOMEN: Soft, nontender. Bowel sounds are present. EXTREMITIES: Without edema. NEUROLOGIC: He is awake and alert. DIAGNOSTIC STUDIES LABORATORY: Blood gas done down in the emergency room on 4 liters with pH 7.31, pCO2 of 63, pO2 of 193. Serum chemistry significant for bicarb of 30, BUN 18, creatinine 0.7, potassium was a little bit low at 3.3. BNP 311. White blood cell count 15,000, hemoglobin 13.5, hematocrit 42, 353,000 platelets. It is notable that a previous sputum did grow out Acinetobacter sensitive to Levaquin and Unasyn. CARDIOVASCULAR: Last echocardiogram was in 2011 and really not that impressive with normal LV function and size. IMPRESSION 1. Pneumonia, presumed healthcare associated and considered Gram negative. He did grow out Acinetobacter previously. 2. Cyipk-rv-irluwmg hypercapnic respiratory failure. 3. Chronic obstructive pulmonary disease with maybe a little bronchospasm. PLAN 1. Because he grew out Acinetobacter previously, I will go ahead and treat him with Zosyn after all. I had planned to avoid it because of considerations of using vancomycin. However, his BUN and creatinine are okay at 18 and 0.7 and so I will go ahead use the combination rather briefly. By the way, the lactic acid was okay so I do not think he is septic. 2. I will probably consider a CT of the chest while he is here. 3. He may need immunoglobulins quantitative. Dictated by Ru Srinivasan M.D. Unit #: [id number] #: [id number] Patient: GABRIEL CELESTIN TD: 10/09/2016 23:18 JOB #: [id number] HISTORY AND PHYSICAL Page 1 of 1 X Ru Srinivasan MD HISTORY AND PHYSICAL
--- NOTE | ~2016-10-09 | DS ---
Unit #: [id number] #: [id number] Patient: GABRIEL CELESTIN [id number] [facility] [facility]. [place], [place] [address] [id number] I MR#: [id number] NAME: GABRIEL CELESTIN. ROOM: 301 Age: 76 Sex: M Admission Date: 10/09/2016 : 1940 Discharge Date: 10/14/2016 Attending Physician: Brady Lantigua M.D. Primary Care Physician: Rosy Martel M.D. DISCHARGE SUMMARY HISTORY OF PRESENT ILLNESS This is a 76-year-old gentleman with a history of pneumonia, COPD, and felt like he had a cold 5 days ago. Took the day off on Friday. He did not feel a whole lot better. Continued to have worsening shortness of air, came to emergency room last weekend and complained of some chest tightness. No choking on food. History of smoking. HOSPITAL COURSE Patient given steroids and given antibiotics. We were unable to wean him off 2 liters oxygen, which is what he is on at home. Therefore, patient is going home on oxygen at 2 liters nasal canula. So, patient is feeling better, has no nausea, no vomiting by the end. He is still on 2 liters so he will be discharged on 10/14/16 with antibiotics and steroids to follow up with Dr. Srinivasan in approximately 2 weeks. DISCHARGE MEDICATIONS Discharge meds include: 1. DuoNebs 4 times a day. 2. Prednisone taper 4 for 3 days, 3 for 3 days, 2 for 3 days, and 1 for 3 days. 3. Anoro 1 puff twice a day. 4. Atorvastatin 20 mg daily. 5. Aspirin 81 mg daily. 6. Hydrocodone/acetaminophen 1 tablet 2-3 times a day. 7. Plavix 75 mg daily. 8. Doxycycline 100 mg daily. 9. Nitroglycerin 0.4 mg daily as needed. DISCHARGE INSTRUCTIONS 1. Patient is to return to see Dr. Srinivasan in 2-4 weeks. 2. Follow up with primary care doctor. 3. He is going to be sent home on oxygen at 2 liters continuous and probably 3 liters with exertion. 4. Please note patient does not wish to wear BiPAP; therefore, we will send him home on home oxygen. He will follow up with Dr. Srinivasan to evaluate for any sleep apnea. Please page me at [phone] for any questions. Unit #: [id number] #: [id number] Patient: GABRIEL CELESTIN Dictated by.Rogers Bauer TD: 10/16/2016 08:09 JOB #: [id number] DISCHARGE SUMMARY Page 1 of 1 X Henok Lantigua MD X DISCHARGE SUMMARY
[~2016-10-09 12:06] MED LIST changes: +ALMACONE CHEWA1 EACH PO; +BREO ELLIPTA 21 EACH INH; +BREO ELLIPTA I1 EACH INH; +LEVAQUIN750 MG PO; +LORTAB 10-3251 EACH PO; +NITROGLYCERIN0.4 MG SL
[2016-10-09 12:43] LABS: BASOPHIL% 0.2 % (0-2.5); EOSINOPHIL% 0.2 % (0.0-7.0); HEMATOCRIT 42.4 % (38.0-50.0); HEMOGLOBIN 13.5 gm/dL (13.0-16.0); LYMPHOCYTE# 1.6 X10e3 (1.0-3.5); LYMPHOCYTE% 10.6 % (17.0-45.0); MEAN CELL VOLUME 87.7 FL (83-96); MEAN CORPUSCULAR HGB CONC 31.9 g/dL (30-36); MEAN PLATELET VOLUME 8.2 FL (6.5-11.5); MONOCYTE% 6.8 % (3.0-12.0); NEUTROPHIL# 12.3 X10e3 (1.5-7.1); NEUTROPHIL% 82.2 % (40-75); PLATELET COUNT 353 X10e3 (140-420); RED BLOOD COUNT 4.83 X10e (3.90-5.60); RED CELL DISTRIBUTION WIDTH 13.9 % (11.0-15.5)
[2016-10-09 12:45] LABS: DIFF IND NO
[2016-10-09 12:51] LABS: POC - CKMB 8.9 ng/mL (0.0-7.9); POC - TROPONIN <0.05 ng/mL (<=0.05)
[2016-10-09 13:07] LABS: ALBUMIN SERUM 2.9 g/dL (3.5-5.0); BILIRUBIN, DIRECT 0.3 mg/dL (0.0-0.2); BILIRUBIN,INDIRECT 0.3 mg/dL (0.0-0.9); BILIRUBIN,TOTAL 0.6 mg/dL (0.2-2.0); BUN/CREATININE RATIO 25.71; CALCIUM SERUM 8.7 mg/dL (8.4-10.2); CREATININE SERUM 0.7 mg/dL (0.6-1.4); MAGNESIUM 2.2 mg/dL (1.6-3.0); POTASSIUM 3.3 mmol/L (3.5-5.1); PROTEIN TOTAL SERUM 7.1 g/dL (6.0-8.3)
[2016-10-09 13:22] LABS: INR 1.1; PARTIAL THROMBOPLASTIN TIME 32.4 SECONDS (23.5-31.3); PROTHROMBIN TIME (PATIENT) 11.8 SECONDS (10.0-11.7)
[2016-10-09 13:26] LABS: ARTERIAL BLD GAS O2 SATURATION 98.2 % (90.0-100.0); ARTERIAL BLOOD GAS CARBOXY HB 0.8 %sat (0.0-9.0); ARTERIAL BLOOD GAS HCO3 32.4 mmol/L; ARTERIAL BLOOD GAS MET HB 0.6 %sat (0.0-2.0); ARTERIAL BLOOD GAS pH 7.315 (7.350-7.450)
[2016-10-09 13:27] LABS: ARTERIAL BLOOD GAS ALLEN TEST NORMAL; ARTERIAL BLOOD GAS ART SITE RIGHT RADIAL; ARTERIAL BLOOD GAS DELIVERY NASAL CANNULA; ARTERIAL BLOOD GAS PCO2 63.8 mmHg (35.0-45.0); ARTERIAL DRAW? YES
[2016-10-09 14:45] LABS: URINE SOURCE CLEAN CATCH
[2016-10-09 14:56] LABS: URINE APPEARANCE TURBID; URINE BILIRUBIN NEG (NEG); URINE BLOOD NEG (NEG); URINE COLOR DK YELLOW; URINE GLUCOSE NEG (NEG); URINE KETONE NEG (NEG); URINE LEUKOCYTE ESTERASE NEG (NEG); URINE NITRATE NEG (NEG); URINE PROTEIN 1+ (NEG); URINE SPECIFIC GRAVITY 1.033 (1.003-1.035)
[2016-10-09 14:58] LABS: URINE BACTERIA AUWI NEG (NEGATIVE); URINE SQUAMOUS EPITHELIAL CELL OCC /[HPF]
[2016-10-09 15:15] LABS: CULTURE INDICATED? NO; URBCS1 AUWI 0-2 /[HPF] (0-2); URINE AMORPHOUS SEDIMENT AMORP URATES
[2016-10-09] MEDS ORDERED: LIPITOR20 MG PO (15:34)
[2016-10-09] MEDS ORDERED: CLOPIDOGREL75 MG PO (15:34)
[2016-10-09] MEDS ORDERED: NITROSTAT0.4 MG PO (15:35)
[2016-10-09] MEDS ORDERED: LORTAB 10-3251 EACH PO (15:35)
[2016-10-09] MEDS ORDERED: LEVAQUIN PO (15:35)
[2016-10-09] MEDS ORDERED: IPRATR-ALBUTEROL3 ML NEB (15:36)
[2016-10-09] MEDS ORDERED: ASPIRIN81 M2 PO (15:36)
[2016-10-09] MEDS ORDERED: ANORO ELLIPTA1 EACH INH (15:36)
[2016-10-09 16:56] LABS: POC - CKMB 7.9 ng/mL (0.0-7.9); POC - TROPONIN 0.07 ng/mL (<=0.05)
[2016-10-10 06:07] LABS: HEMATOCRIT 41.4 % (38.0-50.0); HEMOGLOBIN 12.9 gm/dL (13.0-16.0); MEAN CELL VOLUME 88.3 FL (83-96); MEAN CORPUSCULAR HEMOGLOBIN 27.5 PG (28-34); MEAN CORPUSCULAR HGB CONC 31.1 g/dL (30-36); MEAN PLATELET VOLUME 8.4 FL (6.5-11.5); RED BLOOD COUNT 4.69 X10e (3.90-5.60); RED CELL DISTRIBUTION WIDTH 13.8 % (11.0-15.5)
[2016-10-10 06:59] LABS: BUN/CREATININE RATIO 28.75; CALCIUM SERUM 8.7 mg/dL (8.4-10.2); CREATININE SERUM 0.8 mg/dL (0.6-1.4); POTASSIUM 4.6 mmol/L (3.5-5.1)
[2016-10-11 06:35] LABS: CALCIUM SERUM 8.8 mg/dL (8.4-10.2); CREATININE SERUM 0.8 mg/dL (0.6-1.4); POTASSIUM 5.2 mmol/L (3.5-5.1)
[2016-10-11 06:54] LABS: ALBUMIN SERUM 2.1 g/dL (3.5-5.0); BILIRUBIN, DIRECT 0.2 mg/dL (0.0-0.2); BILIRUBIN,INDIRECT 0.2 mg/dL (0.0-0.9); BILIRUBIN,TOTAL 0.4 mg/dL (0.2-2.0); PROTEIN TOTAL SERUM 5.2 g/dL (6.0-8.3)
[2016-10-12 07:29] LABS: CALCIUM SERUM 8.7 mg/dL (8.4-10.2); CREATININE SERUM 0.6 mg/dL (0.6-1.4); GLOM FILT RATE Estimated 99.1 mL/min (>60); POTASSIUM 4.7 mmol/L (3.5-5.1)
[2016-10-13 05:56] LABS: BUN/CREATININE RATIO 31.42; CALCIUM SERUM 8.3 mg/dL (8.4-10.2); CREATININE SERUM 0.7 mg/dL (0.6-1.4); POTASSIUM 4.4 mmol/L (3.5-5.1)
[2016-10-14] MEDS ORDERED: DOXYCYCLINE150 MG PO (16:32)
[2016-10-14] MEDS ORDERED: PREDNISONE (16:34)
== END 2016-10-14 18:16 | disposition home or self-care (01) | DRG 189 ==
LOC: CED 12:06 → CEDOF 16:17 → C3A PCU 16:17 → CED 16:52 → CEDOF 16:52 → C3A PCU 20:34 → CEDOF 20:34 → C3A PCU 10-14 18:16
PROVIDERS: Internal Medicine Pulmonary Disease; Student in an Organized Health Care Education/Training Program
DX: J96.22 Acute and chronic respiratory failure with hypercapnia (principal); J18.9 Pneumonia, unspecified organism; J44.0 Chronic obstructive pulmonary disease with (acute) lower respiratory infection; J44.1 Chronic obstructive pulmonary disease with (acute) exacerbation; J96.21 Acute and chronic respiratory failure with hypoxia; Z87.891 Personal history of nicotine dependence; I25.10 Atherosclerotic heart disease of native coronary artery without angina pectoris; Z95.5 Presence of coronary angioplasty implant and graft; I10 Essential (primary) hypertension; E78.5 Hyperlipidemia, unspecified; M54.9 Dorsalgia, unspecified; G89.29 Other chronic pain; Z85.49 Personal history of malignant neoplasm of other male genital organs; Z79.82 Long term (current) use of aspirin; Z79.02 Long term (current) use of antithrombotics/antiplatelets; Z82.49 Family history of ischemic heart disease and other diseases of the circulatory system; Z80.3 Family history of malignant neoplasm of breast; J44.9 Chronic obstructive pulmonary disease, unspecified
CPT/HCPCS: 36415; 36600; 71010; 71020; 71250; 80048; 80076; 80202; 81003; 82553; 82803; 82947; 83605; 83735; 83880; 84484; 85025; 85027; 85610; 85730; 87040; 87070; 87205; 93005; 94640; 94660; 94760; 96374; 97162; 99285; G8978-GP; G8979-GP; G8980-GP; J0295; J0692; J1040; J1650; J1815; J2543; J2920; J2930; J3260; J3370